=== PATIENT | female | born 1980 | race Caucasian/White ===

== ENCOUNTER → 2020-03-04 17:50 | Outpatient (CLI) | payer BC, SELFPAY ==
--- NOTE | ~2020-03-04 | US_ITS ---
EXAMINATION: US transvaginal DATE: 03/04/2020 18:14 INDICATION: Endometriosis. Abnormal uterine bleeding. TECHNIQUE: Multiple transvaginal sonographic images of the pelvis were obtained. COMPARISON: None. FINDINGS: The uterus measures 8.2 x 4.9 x 5.7 cm. There is no free fluid in the pelvis. The endometrial complex measures 5 mm in thickness. There is a nabothian cysts in the cervix. The right ovary measures 5.2 x 4.6 x 4.4 cm. There is a 4.4 cm hemorrhagic cyst in right ovary. The left ovary measures 4.2 x 2.9 x 5.1 cm. There is normal vascular flow in the ovaries. IMPRESSION: 1. 4.4 cm hemorrhagic cyst in right ovary. Pelvis ultrasound is recommended in 6-12 weeks. Reviewed, dictated and finalized at location A. INSTALLER
== END ==
PROVIDERS: PCP Family Medicine; Visit Provider Nurse Practitioner Family
DX: N94.6 Dysmenorrhea, unspecified (principal); R97.1 Elevated cancer antigen 125 [CA 125]; N80.9 Endometriosis, unspecified; N83.201 Unspecified ovarian cyst, right side
CPT/HCPCS: 76830

== ENCOUNTER → 2020-07-12 07:20 | Outpatient (CLI) | payer BC, SELFPAY ==
--- NOTE | ~2020-07-12 | XR_ITS ---
XR shoulder LT min 2V 07/12/2020 07:59 Indication: Left shoulder pain Procedure: 4 views left shoulder Comparison: No prior studies for comparison. Findings: No fracture, subluxation or dislocation. No significant soft tissue abnormality. No foreign bodies. Visualized lung parenchyma is unremarkable. Impression: 1: No significant bone or joint abnormality. Reviewed, dictated and finalized at location A. Impression: 1: No significant bone or joint abnormality.
--- NOTE | ~2020-07-12 | XR_ITS ---
XR foot LT min 3V 07/12/2020 07:59 INDICATION: Left foot pain PROCEDURE: 4 views left foot COMPARISON: No prior studies for comparison. FINDINGS: Fracture, dislocation or subluxation is not identified. There is a degenerative calcaneal e nthesophyte. The soft tissues appear within normal limits. No foreign bodies are identified. IMPRESSION: 1: NO ACUTE BONE OR JOINT ABNORMALITY IDENTIFIED. Reviewed, dictated and finalized at location A.
== END ==
PROVIDERS: PCP Family Medicine; Visit Provider Nurse Practitioner Family
DX: M25.512 Pain in left shoulder (principal); M79.672 Pain in left foot
CPT/HCPCS: 73030; 73630

== ENCOUNTER → 2021-01-10 10:39 | Outpatient (CLI) | payer BC, SELFPAY ==
--- NOTE | ~2021-01-10 | US_ITS ---
EXAMINATION: US thyroid EXAM DATE: 01/10/2021 10:54 INDICATION: Nontoxic goiter TECHNIQUE: Multiple grayscale and Doppler images of the thyroid were obtained (by a technologist who performed the scan) and subsequently reviewed. Individual nodules and recommendations may be reporte d in accordance with TI-RADS system as designated by the 2017 ACR White Paper TI-RADS committee. Comp arison is made to prior examination from 08/09/2013. FINDINGS: The right thyroid lobe measures 5.0 x 2.2 x 1.8 cm, the left measuring 4.2 x 1.6 x 1.7 cm. There is d iffusely heterogeneous thyroid echogenicity and diffusely lobular contour. No suspicious focal nodula r regions are suspected. There is no significant interval change. IMPRESSION: Mild to moderate thyromegaly unchanged. Reviewed, dictated and finalized at location B.
== END ==
PROVIDERS: PCP Family Medicine; Visit Provider Internal Medicine Endocrinology, Diabetes & Metabolism
DX: E04.9 Nontoxic goiter, unspecified (principal)
CPT/HCPCS: 76536

== ENCOUNTER → 2023-02-15 16:22 | Outpatient (CLI) | payer BC, SELFPAY ==
--- NOTE | ~2023-02-15 | MM_ITS ---
EXAMINATION: MM screening emiliano BI w sharmin HISTORY: Screening mammogram TECHNIQUE: Craniocaudal and mediolateral oblique 3-D tomosynthesis images were obtained and synthetic 2-D images were generated. CAD analysis was submitted and interpreted. COMPARISON: No prior mammogram is available for comparison at this institution. BREAST PARENCHYMAL COMPOSITION:There are scattered areas of fibroglandular density. FINDINGS: No suspicious mass, calcification, or architectural distortion are identified in either aleksandar ast to suggest malignancy. IMPRESSION: No mammographic evidence of malignancy. Recommend routine screening mammography in one year. BI-RADS Category 1: Negative Reviewed, dictated and finalized at location . R ENGINEER
== END ==
PROVIDERS: Visit Provider Nurse Practitioner Family
DX: Z12.31 Encounter for screening mammogram for malignant neoplasm of breast (principal)
CPT/HCPCS: 77063; 77067